=== PATIENT | female | born 1955 | race Two or more races ===

== ENCOUNTER 2016-12-16 21:14 | Inpatient (IN) | payer MEDICAID, OTHER ==
[~2016-12-16] VITALS: Ht 157.5 cm; Wt 61.8 kg
[2016-12-16 21:36] LABS: Basophils # (auto) 0.1 uL; Eosinophils # (auto) 0.4 uL; Eosinophils % (auto) 3.9 % (0.0-7.0); Hematocrit 43.3 % (36.0-46.0); Hemoglobin 14.4 g/dL (12.2-16.2); Lymphocytes # (auto) 3.5 uL; Lymphocytes % (auto) 37.5 % (10.0-50.0); Mean Corpuscular Hemoglobin 30.1 pg (28.0-32.0); Mean Corpuscular Hgb Conc. 33.2 g/dL (32.0-36.0); Mean Corpuscular Volume 90.6 fL (80.0-100.0); Mean Platelet Volume 7.7 fL (7.4-10.4); Monocytes # (auto) 0.7 uL; Monocytes % (auto) 7.2 % (0.0-12.0); Neutrophils # (auto) 4.6 uL; Neutrophils % (auto) 50.4 % (37.0-80.0); Platelet Count (auto) 325 10^3/uL (140-450); White Blood Cell 9.2 10^3/uL (4.4-10.8)
[2016-12-16 21:57] LABS: Albumin 3.8 g/dL (3.4-5.0); Anion Gap 7 (5-15); Aspartate Aminotransferase 10 U/L (15-37); BUN/Creatinine Ratio 13.9; Blood Urea Nitrogen 14 mg/dL (7-18); Carbon Dioxide 28 mmol/L (21-32); Chloride 101 mmol/L (98-107); GFR African American 72 mL/min; GFR Non-African American 59 mL/min; Glucose 97 mg/dL (74-106); Potassium 4.3 mmol/L (3.5-5.1); Sodium 136 mmol/L (136-145)
[2016-12-16 22:02] LABS: Alkaline Phosphatase 63 U/L (45-117); Bilirubin, Total 0.2 mg/dL (0.2-1.0); Total Protein 7.4 g/dL (6.4-8.2)
[2016-12-17] MEDS ORDERED: HYDROmorphone HCL 2 MG/ML VL IV ONE (03:30)
[2016-12-17] MEDS ORDERED: ONDANSETRON HCL 4 MG/2 ML VIAL IV ONE (03:30)
[2016-12-17] MEDS ORDERED: ALBUTEROL SULF 2.5 MG/0.5ML(0.5%) NEB SOLN NEB PRN (05:00)
[2016-12-17] MEDS ORDERED: NITROGLYCERIN 0.4 MG SL TAB SL PRN (05:00)
[2016-12-17] MEDS ORDERED: DOCUSATE SOD 100 MG CAP PO PRN (05:00)
[2016-12-17] MEDS ORDERED: ONDANSETRON HCL 4 MG/2 ML VIAL IV PRN (05:00)
[2016-12-17] MEDS ORDERED: TEMAZEPAM 15 MG CAP PO PRN (05:00)
[2016-12-17] MEDS ORDERED: ACETAMINOPHEN 325 MG TAB PO PRN (05:00)
[2016-12-17] MEDS: LEVOTHYROXINE SODIUM 25 MCG TAB PO SCH (07:14)
[2016-12-17 07:59] VITALS: BP 102/64
[2016-12-17] MEDS: HYDROcodone-ACET 5/325MG TAB PO PRN ×2 (08:26→22:11)
[2016-12-17] MEDS: traZODone HCL 50 MG TAB PO SCH ×2 (09:51→22:11)
[2016-12-17] MEDS: CLOPIDOGREL BISULFATE 75 MG TAB PO SCH (09:52)
[2016-12-17] MEDS: ASPirin 81 mg TAB PO SCH (09:52)
[2016-12-17] MEDS: FAMOTIDINE 20 MG TAB PO SCH ×2 (09:52→22:11)
[2016-12-17] MEDS: ENOXAPARIN SOD 40 MG/0.4 ML SYRINGE SC SCH (09:52)
[2016-12-17 10:19] VITALS: BP 96/59
[2016-12-17] MEDS: MORPHINE SULF INJ 2 MG/ML SYRINGE 1ML IV PRN (13:15)
[2016-12-17 16:51] VITALS: BP 93/63
[2016-12-17] MEDS ORDERED: ASPI-266 PO (17:45)
[2016-12-17] MEDS ORDERED: LEVO-28 PO (17:45)
[2016-12-17] MEDS ORDERED: BUSP10TA90 PO (17:45)
[2016-12-17] MEDS ORDERED: CLOP75TA41 PO (17:45)
[2016-12-17] MEDS ORDERED: SIMV-13 PO (17:45)
[2016-12-17] MEDS ORDERED: TRAZ100T2 PO (17:45)
[2016-12-17] MEDS ORDERED: OMEP20CA5 PO (17:45)
[2016-12-17] MEDS ORDERED: LEVO25TA6 PO (17:45)
[2016-12-17] MEDS ORDERED: NAP500T PO (17:45)
[2016-12-17] MEDS ORDERED: PRO20T PO (17:55)
[2016-12-17] MEDS ORDERED: NITR0.4S29 SL (17:55)
[2016-12-17] MEDS ORDERED: ALPR-140 PO (17:55)
[2016-12-17] MEDS ORDERED: FLU220IH IN (17:55)
[2016-12-17] MEDS ORDERED: FLUT250M2 IN (17:55)
[2016-12-17] MEDS ORDERED: HYDR-531 PO (17:55)
[2016-12-17] MEDS ORDERED: DIA5T PO (17:55)
[2016-12-17 19:49] VITALS: BP 96/63
[2016-12-17 22:00] VITALS: BP 117/62
[2016-12-17] MEDS: ATORVASTATIN 20 MG TAB PO SCH (22:11)
[2016-12-18 05:00] VITALS: BP 114/71
[2016-12-18 06:02] LABS: Basophils # (auto) 0.1 uL; Basophils % (auto) 0.9 % (0.0-2.0); Eosinophils # (auto) 0.3 uL; Eosinophils % (auto) 4.8 % (0.0-7.0); Hemoglobin 14.1 g/dL (12.2-16.2); Lymphocytes % (auto) 32.2 % (10.0-50.0); Mean Corpuscular Hgb Conc. 33.5 g/dL (32.0-36.0); Mean Corpuscular Volume 89.8 fL (80.0-100.0); Mean Platelet Volume 7.9 fL (7.4-10.4); Monocytes # (auto) 0.6 uL; Monocytes % (auto) 9.2 % (0.0-12.0); Neutrophils # (auto) 3.3 uL; Neutrophils % (auto) 52.9 % (37.0-80.0); Platelet Count (auto) 287 10^3/uL (140-450); Red Cell Distribution Width 15.6 % (11.6-16.0); White Blood Cell 6.2 10^3/uL (4.4-10.8)
[2016-12-18] MEDS: LEVOTHYROXINE SODIUM 25 MCG TAB PO SCH (06:29)
[2016-12-18 07:02] LABS: Albumin 3.3 g/dL (3.4-5.0); BUN/Creatinine Ratio 12.9; Bilirubin, Total 0.3 mg/dL (0.2-1.0); Calcium 8.9 mg/dL (8.5-10.1); Potassium 4.3 mmol/L (3.5-5.1)
[2016-12-18] MEDS ORDERED: ADENOSINE 50 MG in GIVE UN-DILUTED 0 ML IV STA (09:05)
[2016-12-18 09:27] VITALS: BP 118/71
[2016-12-18] MEDS: ASPirin 81 mg TAB PO SCH (10:32)
[2016-12-18] MEDS: ENOXAPARIN SOD 40 MG/0.4 ML SYRINGE SC SCH (10:33)
[2016-12-18] MEDS: FAMOTIDINE 20 MG TAB PO SCH ×2 (10:33→21:24)
[2016-12-18] MEDS: HYDROcodone-ACET 5/325MG TAB PO PRN ×2 (11:23→21:32)
[2016-12-18] MEDS: CLOPIDOGREL BISULFATE 75 MG TAB PO SCH (11:23)
[2016-12-18] MEDS: traZODone HCL 50 MG TAB PO SCH ×2 (11:24→21:24)
[2016-12-18 13:00] VITALS: BP 121/86
[2016-12-18 15:54] VITALS: BP 121/86
[2016-12-18 17:12] VITALS: BP 164/95
[2016-12-18 19:30] LABS: INR 1.03 (0.9-1.15); Partial Thromboplastin Time 31.5 sec (22.64-33.71); Prothrombin Time 10.6 sec (9.37-12.3)
[2016-12-18] MEDS: ATORVASTATIN 20 MG TAB PO SCH (21:23)
[2016-12-18 22:11] VITALS: BP 130/94
[2016-12-19 04:56] VITALS: BP 102/64
[2016-12-19] MEDS: MORPHINE SULF INJ 2 MG/ML SYRINGE 1ML IV PRN (05:06)
[2016-12-19] MEDS: LEVOTHYROXINE SODIUM 25 MCG TAB PO SCH (06:56)
[2016-12-19 08:07] VITALS: BP 102/64
[2016-12-19] MEDS: CLOPIDOGREL BISULFATE 75 MG TAB PO SCH (08:14)
[2016-12-19] MEDS: ENOXAPARIN SOD 40 MG/0.4 ML SYRINGE SC SCH (08:14)
[2016-12-19] MEDS ORDERED: LIDOCAINE 2%HCL (LOCAL ANESTH.) INJ 20ML MDV ONE (08:27)
[2016-12-19] MEDS ORDERED: IODIXANOL 320MG/ML 100ML BTL IV ONE (08:28)
[2016-12-19] MEDS ORDERED: SODIUM CHL 0.9% 50 ML ONE (09:07)
[2016-12-19] MEDS ORDERED: fentaNYL CITRATE 100 MCG/2 ML VL ONE (09:07)
[2016-12-19] MEDS ORDERED: ANGIOMAX 250 MG VIAL IV ONE (09:07)
[2016-12-19] MEDS ORDERED: MIDAZOLAM HCL 1MG/1ML-2 ML VIAL ONE (09:07)
[2016-12-19] MEDS ORDERED: EPTIFIBATIDE INJ (2MG/ML) 10ML VIAL IV ONE (09:08)
[2016-12-19] MEDS: ASPirin 81 mg TAB PO SCH (09:27)
[2016-12-19] MEDS: traZODone HCL 50 MG TAB PO SCH ×2 (09:27→22:26)
[2016-12-19] MEDS: FAMOTIDINE 20 MG TAB PO SCH ×2 (09:27→22:25)
[2016-12-19] MEDS ORDERED: ADENOSINE 90 MG/30 ML INJ IV ONE (09:34)
[2016-12-19] MEDS ORDERED: HEPARIN SODIUM (PORCINE) 5000 UNITS/ML 1ML VIAL ONE ×2 (09:35→12:13)
[2016-12-19] MEDS: HYDROcodone-ACET 5/325MG TAB PO PRN ×3 (11:03→20:40)
[2016-12-19 12:00] VITALS: BP 137/86
[2016-12-19 17:25] VITALS: BP 134/73
[2016-12-19 22:00] VITALS: BP 105/68
[2016-12-19] MEDS: ATORVASTATIN 20 MG TAB PO SCH (22:25)
[2016-12-20] MEDS: HYDROcodone-ACET 5/325MG TAB PO PRN ×3 (02:03→10:03)
[2016-12-20 04:49] VITALS: BP 109/64
[2016-12-20 05:55] LABS: Basophils # (auto) 0 uL; Basophils % (auto) 0.6 % (0.0-2.0); Eosinophils # (auto) 0.2 uL; Eosinophils % (auto) 3.5 % (0.0-7.0); Hematocrit 39.1 % (36.0-46.0); Lymphocytes # (auto) 1.7 uL; Lymphocytes % (auto) 32.5 % (10.0-50.0); Mean Corpuscular Hgb Conc. 33.2 g/dL (32.0-36.0); Mean Corpuscular Volume 90.2 fL (80.0-100.0); Monocytes # (auto) 0.4 uL; Monocytes % (auto) 8.5 % (0.0-12.0); Neutrophils # (auto) 2.8 uL; Neutrophils % (auto) 54.9 % (37.0-80.0); Platelet Count (auto) 250 10^3/uL (140-450); Red Cell Distribution Width 15.9 % (11.6-16.0); White Blood Cell 5.2 10^3/uL (4.4-10.8)
[2016-12-20 06:11] LABS: Albumin 3.2 g/dL (3.4-5.0); Calcium 8.3 mg/dL (8.5-10.1)
[2016-12-20 06:13] LABS: BUN/Creatinine Ratio 13.5
[2016-12-20 06:16] LABS: Bilirubin, Total 0.3 mg/dL (0.2-1.0); Total Protein 6.6 g/dL (6.4-8.2)
[2016-12-20] MEDS: LEVOTHYROXINE SODIUM 25 MCG TAB PO SCH (07:28)
[2016-12-20 09:00] VITALS: BP 116/71
[2016-12-20] MEDS: ENOXAPARIN SOD 40 MG/0.4 ML SYRINGE SC SCH (10:00)
[2016-12-20] MEDS: traZODone HCL 50 MG TAB PO SCH (10:03)
[2016-12-20] MEDS: FAMOTIDINE 20 MG TAB PO SCH (10:03)
[2016-12-20] MEDS: ASPirin 81 mg TAB PO SCH (10:03)
[2016-12-20] MEDS: CLOPIDOGREL BISULFATE 75 MG TAB PO SCH (10:04)
[2016-12-20 10:58] VITALS: BP 116/71
== END 2016-12-20 13:00 | disposition home or self-care (01) | DRG 175 ==
LOC: EDBD 21:14 → ER 21:19 → TELE 21:20 → TELE-E-ADS 12-17 07:48 → TELE-CENTR 12-17 10:55
PROVIDERS: ADMIT Nurse Practitioner; ATTEND Internal Medicine
PROC: B2111ZZ Fluoroscopy of Multiple Coronary Arteries using Low Osmolar Contrast (ICD-10-PCS; principal; 2016-12-19)
PROC: 4A023N7 Measurement of Cardiac Sampling and Pressure, Left Heart, Percutaneous Approach (ICD-10-PCS; 2016-12-19)
PROC: B2151ZZ Fluoroscopy of Left Heart using Low Osmolar Contrast (ICD-10-PCS; 2016-12-19)
PROC: 027034Z Dilation of Coronary Artery, One Artery with Drug-eluting Intraluminal Device, Percutaneous Approach (ICD-10-PCS; 2016-12-19)
DX: R07.89 Other chest pain (principal); E44.1 Mild protein-calorie malnutrition; J44.9 Chronic obstructive pulmonary disease, unspecified; E03.9 Hypothyroidism, unspecified; E78.5 Hyperlipidemia, unspecified; M79.7 Fibromyalgia; F17.210 Nicotine dependence, cigarettes, uncomplicated; I25.118 Atherosclerotic heart disease of native coronary artery with other forms of angina pectoris; I70.0 Atherosclerosis of aorta; Z85.828 Personal history of other malignant neoplasm of skin; I25.2 Old myocardial infarction; Z95.5 Presence of coronary angioplasty implant and graft; Z68.24 Body mass index [BMI] 24.0-24.9, adult; Z92.21 Personal history of antineoplastic chemotherapy
CPT/HCPCS: 36415; 71010; 78452; 80053; 84484; 85025; 85610; 85730; 92928; 93005; 93017; 93306; 93458; 96372; 96374; 96375; 99152; C1874; C1887; J0153; J2250; J2405; Q9967